=== PATIENT | male | born 1985 | race African-American/Black ===

== ENCOUNTER 2016-11-23 16:00 | Emergency (ER) | payer OTHER ==
[~2016-11-23] VITALS: Ht 182.9 cm; Wt 90.0 kg
[~2016-11-23 16:00] MED LIST: TRIA.1%T TOP; VIST25CA PO; Z.0.NO CURRENT MEDS
[2016-11-23] MEDS ORDERED: HALOPERIDOL LACTATE 5 MG/ML AMP ONE (16:20)
[2016-11-23] MEDS ORDERED: LORazepam 2 MG/ML VIAL ONE (16:20)
[2016-11-23 16:23] VITALS: BP 142/79; PULSE 60; RESP 18; O2SAT 100
[2016-11-23] MEDS ORDERED: LORazepam 2 MG/ML VIAL IM ONE (16:30)
[2016-11-23] MEDS ORDERED: HALOPERIDOL LACTATE 5 MG/ML AMP IM ONE (16:30)
--- NOTE | 2016-11-23 16:34 | PD ---
HPI Chief Complaint: Edema Time Seen by Provider: 16:12 Travel History International Travel<30 days: No Contact w/Intl Traveler<30days: No Traveled to known affect area: No History of Present Illness HPI This patient is sent from the custodial for evaluation of swelling. He has significant edema in the feet and lower legs and also some in the distal thigh and some penile edema as well. Reportedly he was found with both of his legs sticking out of the meal slot in the cell door. Unclear how long he was there for. Patient has history of mental illness and can provide no history or review of systems. He appears floridly psychotic and is babbling nonsense and resisting exam. Does not appear to know where he is or what's going on. This is his baseline mental status per the guards with him. They report that the swelling in his legs is new though. PFSH Past Medical History ?: Not Social History Alcohol Use: No Tobacco Use: No Substance Use: No Allergies-Medications (Allergen,Severity, Reaction): Coded Allergies: No Known Allergies (Verified , 06/04/10) Reported Meds & Prescriptions Reported Meds & Active Scripts Active Vistaril (Hydroxyzine Pamoate) 25 Mg Cap 25-50 Mg PO TIDPRN FOR ITCHING Aristocort (Triamcinolone Acetonide) 0.1 % Cr 0.1 % TOP TID Reported No Current Meds (Miscellaneous Medication) Misc Review of Systems ROS Limitations: Clinical Condition, Altered Mental Status, Uncooperative, Combative, Psychotic, Poor Historian Physical Exam Narrative GENERAL: Well-nourished, well-developed patient who is babbling and resisting efforts to evaluate him. SKIN: Focused skin assessment reveals no rash and nodules. Skin is Warm and dry. HEAD: Atraumatic. Normocephalic. EYES: Pupils equal and round. No scleral icterus. No injection or drainage. ENT: No nasal bleeding or discharge. Mucous membranes pink and moist. NECK: Trachea midline. No JVD. CARDIOVASCULAR: Regular rate and rhythm. No murmur appreciated. RESPIRATORY: No accessory muscle use. Clear to auscultation. Breath sounds equal bilaterally. GASTROINTESTINAL: Abdomen soft, non-tender, nondistended. Hepatic and splenic margins not palpable. MUSCULOSKELETAL: No obvious deformities. No clubbing. No cyanosis. Symmetric pitting edema from the knees down to the feet. Minor edema and the distal thighs. NEUROLOGICAL: Awake but confused. No obvious cranial nerve deficits. Motor strength seems full but difficult to accurately gauge. Rapid pressured babbling speech. PSYCHIATRIC: Agitated and psychotic appearing mood and labile affect; insight and judgment poor : There is some edema of the penile shaft. Scrotum does not have edema. Has significant bilateral inguinal lymphadenopathy Data Data Last Documented VS Vital Signs Date Time Temp Pulse Resp B/P Pulse Ox O2 Delivery O2 Flow Rate FiO2 11/23/16 18:03 62 18 119/75 100 Room Air Orders Haloperidol Inj (Haldol Inj) (11/23/16 16:20) Lorazepam Inj (Ativan Inj) (11/23/16 16:20) Iv Access Insert/Monitor (11/23/16 16:21) Complete Blood Count With Diff (11/23/16 16:21) Comprehensive Metabolic Panel (11/23/16 16:21) Haloperidol Inj (Haldol Inj) (11/23/16 16:30) Lorazepam Inj (Ativan Inj) (11/23/16 16:30) Labs Laboratory Tests Test 11/23/16 16:40 White Blood Count 5.3 TH/MM3 Red Blood Count 4.01 MIL/MM3 Hemoglobin 10.8 GM/DL Hematocrit 32.6 % Mean Corpuscular Volume 81.3 FL Mean Corpuscular Hemoglobin 27.0 PG Mean Corpuscular Hemoglobin 33.2 % Concent Red Cell Distribution Width 14.9 % Platelet Count 282 TH/MM3 Mean Platelet Volume 8.2 FL Neutrophils (%) (Auto) 65.4 % Lymphocytes (%) (Auto) 20.7 % Monocytes (%) (Auto) 12.1 % Eosinophils (%) (Auto) 1.1 % Basophils (%) (Auto) 0.7 % Neutrophils # (Auto) 3.5 TH/MM3 Lymphocytes # (Auto) 1.1 TH/MM3 Monocytes # (Auto) 0.6 TH/MM3 Eosinophils # (Auto) 0.1 TH/MM3 Basophils # (Auto) 0.0 TH/MM3 CBC Comment DIFF FINAL Differential Comment Sodium Level 141 MEQ/L Potassium Level 4.3 MEQ/L Chloride Level 102 MEQ/L Carbon Dioxide Level 33.6 MEQ/L Anion Gap 5 MEQ/L Blood Urea Nitrogen 10 MG/DL Creatinine 0.92 MG/DL Estimat Glomerular Filtration 118 ML/MIN Rate Random Glucose 70 MG/DL Calcium Level 8.3 MG/DL Total Bilirubin 0.4 MG/DL Aspartate Amino Transf 75 U/L (AST/SGOT) Alanine Aminotransferase 150 U/L (ALT/SGPT) Alkaline Phosphatase 136 U/L Total Protein 6.0 GM/DL Albumin 2.9 GM/DL MDM Medical Decision Making Medical Screen Exam Complete: Yes Emergency Medical Condition: Yes Medical Record Reviewed: Yes Differential Diagnosis Renal failure, liver failure, traumatic edema Narrative Course I have reviewed the patient's electronic medical record. He was here 6 years ago for skin complaints. I reviewed his lab studies from 2 days ago which did show elevated LFTs in the 200 range IV placed I gave him Haldol and Ativan for rapid tranquilization as it is otherwise impossible to evaluate him CBC is normal except for anemia Metabolic profile is reasonably normal LFTs show mild elevation of LFTs but has been worse in the past Patient has readily dopplerable pulses in the feet bilaterally Patient does have mild low albumin and total protein. That may be partially related. There also may be some degree of edema from his positioning in the meal slot but not sure how that could affect his thighs or penile edema. He is stable for follow-up with the custodial physician Would hope that his edema slowly resolves over time Should have multivitamin and ensure shakes to beef up the protein stores Diagnosis Primary Impression: Bilateral lower extremity edema Additional Impressions: Penile edema Hypoalbuminemia Additional Instructions: Follow-up with erika Rome Multivitamin daily ensure shake twice a day with meals due to hypoalbuminemia which may contribute to edema Med/Other Pt SpecificInfo: Other Disposition: [address] LAW ENFORCEMNT Condition: Stable Trey Cassidy MD Nov 23, 2016 16:34
[2016-11-23 17:17] LABS: AUTOMATED NEUTROPHIL # 3.5 TH/MM3 (1.8-7.7); BASOPHIL % 0.7 % (0.0-2.0); EOSINOPHIL # 0.1 TH/MM3 (0-0.4); EOSINOPHIL % 1.1 % (0.0-4.0); HEMATOCRIT 32.6 % (39.0-51.0); HEMO FLAGS DIFF FINAL; LYMPH % 20.7 % (9.0-44.0); LYMPHOCYTE # 1.1 TH/MM3 (1.0-4.8); MEAN CELL VOLUME 81.3 FL (80.0-100.0); MEAN CORPUSCULAR HGB CONC 33.2 % (32.0-36.0); MONO % 12.1 % (0.0-8.0); NEUT % 65.4 % (16.0-70.0); PLATELET COUNT 282 TH/MM3 (150-450); RED BLOOD COUNT 4.01 MIL/MM3 (4.50-5.90); RED CELL DISTRIBUTION WIDTH 14.9 % (11.6-17.2); WHITE BLOOD COUNT 5.3 TH/MM3 (4.0-11.0)
[2016-11-23 17:35] LABS: ALKALINE PHOSPHATASE 136 U/L (45-117); TOTAL BILIRUBIN ADULT 0.4 MG/DL (0.2-1.0)
[2016-11-23 17:39] LABS: ALT (GPT) 150 U/L (12-78); ANION GAP 5 MEQ/L (5-15); AST (GOT) 75 U/L (15-37); BICARBONATE 33.6 MEQ/L (21.0-32.0); BLOOD UREA NITROGEN 10 MG/DL (7-18); CHLORIDE 102 MEQ/L (98-107); GLOMERULAR FILTRATION RATE 118 ML/MIN (>89); POTASSIUM 4.3 MEQ/L (3.5-5.1); SODIUM (NA) 141 MEQ/L (136-145)
[2016-11-23 18:03] VITALS: BP 119/75; PULSE 62; RESP 18; O2SAT 100
[2016-11-23 19:02] VITALS: BP 121/77; PULSE 71; RESP 18; O2SAT 100
== END 2016-11-23 19:03 ==
LOC: NEDAMB 16:00 → NEPC 19:03
DX: R60.9 Edema, unspecified (principal); E88.09 Other disorders of plasma-protein metabolism, not elsewhere classified; Z79.899 Other long term (current) drug therapy
CPT/HCPCS: 80053; 85025; 96372; 99285; J1630; J2060